=== PATIENT | female | born 1995 | race American Indian/Alaskan Native ===

== ENCOUNTER 2016-06-17 09:16 | Emergency (ER) | payer SELFPAY ==
[2016-06-17 10:37] LABS: Basophils % (Auto) 0.5 % (0.0-1.8); Eosinophils % (Auto) 1.3 % (0.0-4.3); Hematocrit 42.6 % (30.3-42.9); Hemoglobin 13.7 gm/dl (10.1-14.3); Mean Corpuscular HGB Conc 32 % (30-34); Mean Corpuscular Hemoglobin 27 pg (28-32); Mean Corpuscular Volume 84 fl (79-97); Platelet Count 336 K/mm3 (140-440); Red Blood Count 5.11 M/mm3 (3.65-5.03); Red Cell Distribution Width 14.4 % (13.2-15.2); White Blood Count 4.1 K/mm3 (4.5-11.0)
[2016-06-17 10:59] LABS: Anion Gap 18 mmol/L; BUN/Creatinine Ratio 13.33; Blood Urea Nitrogen 8 mg/dL (7-17); Calcium 9.1 mg/dL (8.4-10.2); Carbon Dioxide 23 mmol/L (22-30); Chloride 101.6 mmol/L (98-107); Glucose 80 mg/dL (65-100); Potassium 4.8 mmol/L (3.6-5.0); Sodium 138 mmol/L (137-145)
[2016-06-17 11:32] LABS: Bacteria,Urine 1+ /HPF (Negative); Bilirubin,Urine NEG (Negative); Blood,Urine NEG (Negative); Ketones,Urine NEG (Negative); Leukocyte Esterase,Urine LG (Negative); Mucus,Urine 1+ /HPF; Nitrite,Urine NEG (Negative); Protein,Urine <15 mg/dL mg/dL (Negative); Urobilinogen,Urine < 2.0 mg/dL (<2.0)
[2016-06-17] MEDS ORDERED: NACL ONE (15:32)
[2016-06-17] MEDS ORDERED: NACL 0.9% 1000 ML 1,000 ML IV ONE (15:33)
[2016-06-17] MEDS ORDERED: MOTRIN PO ONE (15:34)
--- NOTE | 2016-06-17 17:40 | Cat Scan Report ---
FINAL REPORT EXAM: CT ABDOMEN PELVIS W CON HISTORY: abd pain TECHNIQUE: Standard enhanced CT of the abdomen and pelvis. Imaging was obtained at 1.25 and 2.5 mm axial increments. Delayed imaging through the kidneys and bladder were obtained. Coronal and sagittal reconstruction was also performed. Contrast: 100 mL Omnipaque 300 given IV. PRIORS: None. FINDINGS: Within the abdomen, the liver, pancreas, gallbladder, adrenal glands, and kidneys are unremarkable. A punctate granulomatous calcification in the spleen is seen. No evidence for retroperitoneal or pelvic lymphadenopathy is seen. The bowel loops have normal caliber. No soft tissue mass, fluid collection, inflammatory change, or free air is seen within the abdomen or pelvis. The appendix is not clearly visualized. No inflammatory process in the right lower quadrant or right pelvis is seen however. Within the pelvis, the bladder is unremarkable. The uterus is normal. There is an involuting 1.5 cm cyst in the left ovary (axial image 132) no evidence for mass or lymphadenopathy is seen in the pelvis. Images through the upper abdomen include the lung bases which are expanded and clear. Bony structures show no focal abnormalities and are intact. IMPRESSION: 1. no acute intra-abdominal process noted. 2. Involuting left ovarian cyst
[2016-06-17] MEDS ORDERED: ROCEPHIN IM ONE (19:03)
[2016-06-17] MEDS ORDERED: XYLOCAINE 1% MPF 5 mL INFILTRATI ONE (19:03)
[2016-06-17 19:21] VITALS: BP 132/76
--- NOTE | 2016-06-17 22:09 | Emergency Department Report ---
Entered by FABIANA ALFARO, acting as scribe for DEXTER RODRIGUES NP. ED Female HPI - General Chief complaint: Abdominal Pain Stated complaint: ALLERGIC REACTION/ABD PAIN Time Seen by Provider: 06/17/16 14:45 Source: patient Mode of arrival: Ambulatory Limitations: No Limitations - History of Present Illness Initial comments: 20 year old female with no significant PMHx presents to the ED c/o lower abdominal pain that began 3 days ago. Rates abdominal pain an 8 out of 10 in severity. Patient states that she began experiencing vaginal burning with discharge 2 days prior to the onset of lower abdominal pain. She used over-the- counter Monistat Tuesday to relieve burning sensation, but her symptoms worsened over the next 4 days. Associated symptoms include vaginal swelling that began last night, urgency/frequency with urination, dysuria, white watery discharge, but she denies nausea, vomiting, and diarrhea. She notes that her symptoms began 3 days after sexual intercourse with new partner. LMP 05/29/2016. NKDA. VARMA Complaint: other (lower abdominal pain) Onset/Timin -: days(s) Location: labia, suprapubic Radiation: non-radiating Severity: moderate Severity scale (0 -10): 8 (lower abdominal pain) Quality: burning Consistency: constant Improves with: none Worsens with: urination, medication ([id number] Monistat) Are you Now?: No Last Menstrual Period: 05/29/16 EDC: 03/05/17 Associated Symptoms: vaginal discharge (white "clumpy", but currently white watery), abdominal pain (lower), dysuria. denies: vaginal bleeding, nausea/ vomiting, fever/chills, rash, shortness of breath, other (diarrhea and vaginal odor, but reports vaginal burning and pain, and vaginal swelling) - Related Data Sexually active: Yes Previous Rx's Medication Instructions Recorded Last Taken Type Ibuprofen [Motrin 800 MG tab] 800 mg PO Q8H PRN #30 tablet 02/27/14 Unknown Rx Cephalexin [Keflex] 500 mg PO QID #40 capsule 04/11/14 Unknown Rx Ibuprofen [Motrin 800 MG tab] 800 mg PO Q8H PRN #20 tablet 04/11/14 Unknown Rx Sulfamethoxazole/Trimethoprim 1 each PO BID #20 tablet 02/05/15 Unknown Rx [Bactrim Ds] Azithromycin [Zithromax TAB] 1 g PO QDAY #1 tablet 06/17/16 Unknown Rx Sulfamethoxazole/Trimethoprim 1 each PO BID #6 tablet 06/17/16 Unknown Rx [Bactrim DS TAB] Allergies Allergy/AdvReac Type Severity Reaction Status Date / Time No Known Allergies Allergy Verified 04/11/14 12:38 ED Review of Systems Comment: All other systems reviewed and negative Constitutional: denies: chills, fever Eyes: denies: eye pain, eye discharge, vision change ENT: denies: ear pain, throat pain Respiratory: denies: orthopnea, shortness of breath, SOB with exertion, SOB at rest Cardiovascular: denies: chest pain, palpitations Endocrine: no symptoms reported Gastrointestinal: abdominal pain (lower). denies: nausea, vomiting, diarrhea, constipation Genitourinary: urgency, dysuria, frequency, discharge (white "clumpy", but currently white watery), other (polyuria, vaginal swelling, and vaginal burning , but denies vaginal odor) Musculoskeletal: denies: back pain, joint swelling, arthralgia Skin: denies: rash, lesions Neurological: denies: headache, weakness, paresthesias ED Past Medical Hx - Past Medical History Previous Medical History?: No - Surgical History Past Surgical History?: No Additional Surgical History: tubal (D&C performed) - Social History Smoking Status: Never Smoker Substance Use Type: None - Medications Home Medications: Home Medications Medication Instructions Recorded Confirmed Last Taken Type Ibuprofen [Motrin 800 MG tab] 800 mg PO Q8H PRN #30 tablet 02/27/14 Unknown Rx Cephalexin [Keflex] 500 mg PO QID #40 capsule 04/11/14 Unknown Rx Ibuprofen [Motrin 800 MG tab] 800 mg PO Q8H PRN #20 tablet 04/11/14 Unknown Rx Sulfamethoxazole/Trimethoprim 1 each PO BID #20 tablet 04/11/14 Unknown Rx [Bactrim Ds] Azithromycin [Zithromax TAB] 1 g PO QDAY #1 tablet 06/17/16 Unknown Rx Sulfamethoxazole/Trimethoprim 1 each PO BID #6 tablet 06/17/16 Unknown Rx [Bactrim DS TAB] ED Physical Exam - General Limitations: No Limitations General appearance: alert, in no apparent distress - Head Head exam: Present: atraumatic, normocephalic - Eye Eye exam: Present: normal appearance, EOMI Pupils: Present: normal accommodation - ENT ENT exam: Present: normal exam, mucous membranes moist - Neck Neck exam: Present: normal inspection, full ROM. Absent: tenderness, lymphadenopathy - Respiratory Respiratory exam: Present: normal lung sounds bilaterally. Absent: respiratory distress - Cardiovascular Cardiovascular Exam: Present: regular rate, normal rhythm - GI/Abdominal GI/Abdominal exam: Present: soft, normal bowel sounds. 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 Absent: swelling, lesions, lacerations, ecchymosis, bleeding Speculum exam: Present: erythema (slight erythema on vaginal almanza), vaginal discharge (white-yellow "cottage cheese" discharge). Absent: vaginal bleeding, foreign body, laceration - Expanded Exam Expanded Female exam: Present: other (female corporate scheduler present for exam). Absent: vaginal laceration, vulvar erythema, vulvar tenderness, foreign body External exam: Present: normal. Absent: , bleeding Speculum exam: Present: vaginal discharge (white-yellow "cottage cheese" discharge). Absent: vaginal bleeding - Extremities Exam Extremities exam: Present: normal inspection, full ROM - Back Exam Back exam: Present: normal inspection, full ROM - Neurological Exam Neurological exam: Present: alert, oriented X3 - Psychiatric Psychiatric exam: Present: normal affect, normal mood - Skin Skin exam: Present: warm, dry, intact ED Course Vital Signs 06/17/16 06/17/16 06/17/16 10:09 16:07 19:21 Temperature 98.0 F Pulse Rate 87 84 Respiratory 16 16 18 Rate Blood Pressure 134/78 Blood Pressure 132/76 [Left] O2 Sat by Pulse 100 100 Oximetry - Reevaluation(s) Reevaluation #1: 06/17/16 18:24 Dr. Kyle aware of patient and to obtain CT scan. Patient states her abdominal pain is gone now. Patient is non-toxic appearance or ill. No signs of distress. ED Medical Decision Making - Lab Data Result diagrams: 06/17/16 10:25 06/17/16 10:25 - Medical Decision Making Ed course: This is a 20-year-old female that presents with vaginal discharge and vaginal irritation. She also complains about lower abdominal/pelvis pain. 1- patient received 1000 mL of normal saline bolus. 2- CT scan of the abdomen/pelvis with contrast. Results read by Dr. Baltazar. Impression; no acute intra-abdominal processes noted. Involuting left ovarian cyst. 3- eyes plain to the patient about the CT scan of the left ovarian cyst. Instructed the patient to follow up with her jewelry polisher in 3-5 days. 4- patient tolerated vaginal speculum exam. No signs of complications or distress noted. 5- I sent gonorrhea Chlamydia to the lab. As well as wet prep. 6-I instructed patient to increase her fluids by mouth. The patient to complete antibiotic course. 7- I instructed the patient to come back to [facility] in 5-7 days for results of gonorrhea Chlamydia. 8- due to patient being concerned of gonorrhea Chlamydia and symptoms, I treated patient for gonorrhea Chlamydia with Rocephin and azithromycin. 9- at this time the patient is nontoxic or ill appearance. Denies any further questions. Agrees to treatment plan and discharge instructions. ED Disposition Clinical Impression: UTI (urinary tract infection), Exposure to STD, Cervicitis Disposition: DISCHARGED TO HOME OR SELFCARE Is pt being admited?: No Does the pt Need Aspirin: No Condition: Stable Instructions: Cervicitis (ED), Abdominal Pain (ED) Additional Instructions: Please follow up with her jewelry polisher in 3-5 days. Please follow up with her primary care doctor in 3-5 days. Report back to emergency room if he seen any signs of worsening or changes. Prescriptions: Azithromycin [Zithromax TAB] 1 g PO QDAY #1 tablet Sulfamethoxazole/Trimethoprim [Bactrim DS TAB] 1 each PO BID #6 tablet Referrals: PRIMARY CARE, [Primary Care Provider] - 3-5 Days [facility] [Provider Group] - 3-5 Days [facility] [Outside] - 3-5 Days [facility] [Outside] - 3-5 Days Forms: STI Treatment and Prevention, Work/School Release Form(ED) This documentation as recorded by the DOMINIC long JASMINE,accurately reflects the service I personally performed and the decisions made by me,DEXTER RODRIGUES, ESTRELLA.
== END 2016-06-17 19:21 | disposition home or self-care (01) ==
LOC: ED 09:16
DX: N39.0 Urinary tract infection, site not specified (principal); N72 Inflammatory disease of cervix uteri; Z20.2 Contact with and (suspected) exposure to infections with a predominantly sexual mode of transmission
CPT/HCPCS: 36415; 74177; 80048; 81001; 81025; 85025; 87210; 87591; 96360; 96372; 99285; J0696; J7030; Q9967

== ENCOUNTER 2016-07-25 21:54 | Emergency (ER) | payer SELFPAY ==
[2016-07-25 23:53] LABS: Hematocrit 48.9 % (30.3-42.9); Hemoglobin 15.7 gm/dl (10.1-14.3); Mean Corpuscular HGB Conc 32 % (30-34); Mean Corpuscular Hemoglobin 27 pg (28-32); Mean Corpuscular Volume 84 fl (79-97); Red Blood Count 5.81 M/mm3 (3.65-5.03); Red Cell Distribution Width 15.4 % (13.2-15.2); White Blood Count 6.9 K/mm3 (4.5-11.0)
[2016-07-26 00:50] LABS: Alanine Aminotransferase 67 units/L (7-56); Albumin 3.8 g/dL (3.9-5); Albumin/Globulin Ratio 0.8 %; Alkaline Phosphatase 95 units/L (35-129); Anion Gap 23 mmol/L; Blood Urea Nitrogen 6 mg/dL (7-17); Calcium 8.6 mg/dL (8.4-10.2); Carbon Dioxide 20 mmol/L (22-30); Chloride 100.8 mmol/L (98-107); Glucose 87 mg/dL (65-100); Lipase 18 units/L (13-60); Potassium 4.1 mmol/L (3.6-5.0); Sodium 140 mmol/L (137-145); Total Protein 8.5 g/dL (6.3-8.2)
[2016-07-26 01:36] LABS: Basophils % (Manual) 0 % (0.0-1.8); Blastocytes % (Manual) 0 %
[2016-07-26 01:37] LABS: Diff Status Complete; EDTA Platelet Clumps Rare; Macrocytosis Few; Platelet Count 228 K/mm3 (140-440); Platelet Estimate Consistent w Auto
[2016-07-26 03:06] LABS: Bilirubin,Urine NEG (Negative); Blood,Urine NEG (Negative); Ketones,Urine NEG (Negative); Leukocyte Esterase,Urine LG (Negative); Mucus,Urine 3+ /HPF; Nitrite,Urine NEG (Negative)
[2016-07-26] MEDS ORDERED: MACROBID PO ONE (08:33)
[2016-07-26] MEDS ORDERED: ZOFRAN ODT PO ONE (08:35)
--- NOTE | 2016-07-26 08:36 | Emergency Department Report ---
HPI - General Chief Complaint: Abdominal Pain Time Seen by Provider: 07/26/16 08:24 - HPI HPI: This is a 20-year-old -I[place] female who presents to the emergency department with a 2 week history of vaginal swelling, vaginal discharge, nausea with vomiting and some mild abdominal discomfort. She has taken Monistat thinking that her symptoms were due to a yeast infection but she is not on any relief. She has a history of STDs in the past with previous trichomoniasis, gonorrhea and chlamydia. She is currently sexually active and does not always use protection. No recent travel or sick contacts at home. She denies any past medical history. She does not have a primary care doctor or [facility]. She denies any fever, diarrhea, dysuria, back pain. ED Past Medical Hx - Past Medical History Previous Medical History?: No - Surgical History Past Surgical History?: No Additional Surgical History: tubal (D&C performed) - Social History Smoking Status: Former Smoker Substance Use Type: None - Medications Home Medications: Home Medications Medication Instructions Recorded Confirmed Last Taken Type Ibuprofen [Motrin 800 MG tab] 800 mg PO Q8H PRN #30 tablet 02/27/14 Unknown Rx Cephalexin [Keflex] 500 mg PO QID #40 capsule 04/11/14 Unknown Rx Ibuprofen [Motrin 800 MG tab] 800 mg PO Q8H PRN #20 tablet 04/11/14 Unknown Rx Sulfamethoxazole/Trimethoprim 1 each PO BID #20 tablet 04/11/14 Unknown Rx [Bactrim Ds] Azithromycin [Zithromax TAB] 1 g PO QDAY #1 tablet 06/17/16 Unknown Rx Sulfamethoxazole/Trimethoprim 1 each PO BID #6 tablet 06/17/16 Unknown Rx [Bactrim DS TAB] Doxycycline [Vibramycin CAP] 100 mg PO Q12HR #14 capsule 07/26/16 Unknown Rx HYDROcodone/APAP 5-325 [Sheldahl 1 each PO Q6HR PRN #10 tablet 07/26/16 Unknown Rx 5/325] ED Review of Systems ROS: Stated complaint: VAG SWELLING/ABD PAIN/VOMITING Other details as noted in HPI Comment: All other systems reviewed and negative Constitutional: denies: chills, fever Eyes: denies: eye pain, eye discharge, vision change ENT: denies: ear pain, throat pain Respiratory: denies: cough, shortness of breath, wheezing Cardiovascular: denies: chest pain, palpitations Gastrointestinal: abdominal pain, nausea, vomiting Genitourinary: discharge. denies: dysuria Musculoskeletal: denies: back pain, joint swelling, arthralgia Skin: denies: rash, lesions Neurological: denies: weakness, numbness Physical Exam - Physical Exam Vital Signs: Vital Signs 07/25/16 07/26/16 23:19 05:45 Temperature 98.1 F 98.5 F Pulse Rate 95 H 95 H Respiratory 18 20 Rate Blood Pressure 120/80 134/84 O2 Sat by Pulse 100 100 Oximetry Physical Exam: GENERAL: The patient is well-developed well-nourished. HEENT: Normocephalic. Atraumatic. Extraocular motions are intact. Patient has moist mucous membranes. Pupils equal reactive to light bilaterally. NECK: Supple. Trachea is midline. CHEST/LUNGS: Clear to auscultation. There is no respiratory distress noted. HEART/CARDIOVASCULAR: Regular. There is no tachycardia. There is no gallop rub or murmur. ABDOMEN: Abdomen is soft, nontender. Patient has normal bowel sounds. There is no abdominal distention. No guarding. SKIN: There is some mild nonpitting swelling of the bilateral labia but no erythema, lesions. NEURO: The patient is awake, alert, and oriented. The patient is cooperative. The patient has no focal neurologic deficits. The patient has normal speech. MUSCULOSKELETAL: There is no tenderness or deformity. There is no limitation range of motion. There is no evidence of acute injury. : No visible vaginal lesions. There is a mild to moderate amount of non- malodorous thin white discharge seen. There is some tenderness to palpation over the bilateral labia. ED Course Vital Signs 07/25/16 07/26/16 23:19 05:45 Temperature 98.1 F 98.5 F Pulse Rate 95 H 95 H Respiratory 18 20 Rate Blood Pressure 120/80 134/84 O2 Sat by Pulse 100 100 Oximetry ED Medical Decision Making - Lab Data Result diagrams: 07/25/16 23:29 07/25/16 23:29 - Radiology Data Radiology results: image reviewed interpreted by me: Abdominal x-ray shows non-obstructive nonspecific bowel gas. - Medical Decision Making 20-year-old female presents emergency Department with complaint of vaginal pain , some discharge and occasionally some abdominal discomfort. Vital signs stable throughout her ED course including being afebrile. Labs are mostly unremarkable. The patient has some mild elevation in transaminase levels but they're not significantly high and not in an area where the patient has any discomfort. An abdominal x-ray was done that does not show any acute process including no signs of obstruction. Patient's labs showed a small urinary tract infection but it was not a clean sample, however the patient was treated with a dose of Macrobid. A pelvic exam was done that shows a mild to moderate amount of non-malodorous thin white discharge. It also shows a inflamed labial region but there is no erythema and no lesions seen. The patient was asked repeatedly but denies any actual pelvic pain and says that the pain is mostly around the labia and vagina. For this reason no pelvic ultrasound was done. There is no visible abscess or Bartholin's gland cyst. The vaginal discharge was tested on wet prep was negative for Trichomonas or BV. The gonorrhea and chlamydia cultures are not yet back. However the patient will be treated with doxycycline as it will cover her for any cellulitis, gonorrhea and chlamydia or intra-abdominal/pelvic etiology. The patient was given referrals for primary care and [facility]. She will return to the ER with any worsening of her symptoms or any acute distress. - Differential Diagnosis Soha, STD, abscess, , UTI Critical Care Time: No Critical care attestation.: If time is entered above; I have spent that time in minutes in the direct care of this critically ill patient, excluding procedure time. ED Disposition Clinical Impression: Vaginal discharge, Vaginal pain, Nausea UTI (urinary tract infection) Qualifiers: Urinary tract infection type: acute cystitis Hematuria presence: without hematuria Qualified Code(s): N30.00 - Acute cystitis without hematuria Disposition: DISCHARGED TO HOME OR SELFCARE Is pt being admited?: No Condition: Stable Instructions: Acute Nausea and Vomiting (ED), Abdominal Pain (ED) Additional Instructions: You were seen today for your vaginal pain, vaginal discharge, nausea and occasional abdominal discomfort. The results of your gonorrhea and/or Chlamydia culture should be back in 2-3 days. I'm starting you on an antibiotics to cover you for a mild urinary tract infection and possible skin infection of the vagina. This antibiotic can sometimes make people sensitive to the sun or UV light and therefore you should wear sunscreen when you are outside. I have given you a referral for both primary care and [facility]. Return to the emergency department with any worsening of your symptoms or any acute distress. You've been prescribed a medication that is sedating. Therefore this medication cannot be mixed with alcohol, or taken prior to driving, working, or being responsible for children. Prescriptions: Doxycycline [Vibramycin CAP] 100 mg PO Q12HR #14 capsule HYDROcodone/APAP 5-325 [Sheldahl 5/325] 1 each PO Q6HR PRN #10 tablet PRN Reason: Pain Referrals: AMELIE SHER MD [Primary Care Provider] - 3-5 Days INO ZAZUETA MD [Staff Physician] - 3-5 Days [facility] [Provider Group] - 3-5 Days [facility] [Provider Group] - 3-5 Days [facility] [Outside] - 3-5 Days Time of Disposition: 11:48
--- NOTE | 2016-07-26 09:27 | XRay Report ---
Abdomen 2 views: History: Abdominal pain. Findings: No free intraperitoneal air. No bowel distention or wall thickening. No radiopaque calculus or abnormal calcification. Impression: No acute cardiopulmonary findings.
[2016-07-26] MEDS ORDERED: PERCOCET 5/325 PO ONE (11:20)
[2016-07-26] MEDS ORDERED: VIBRAMYCIN PO ONE (11:26)
[2016-07-26] MEDS ORDERED: MACROBID ONE (11:30)
[2016-07-26] MEDS ORDERED: ZOFRAN ODT ONE (11:30)
[2016-07-26 12:12] VITALS: BP 118/76
== END 2016-07-26 12:13 | disposition home or self-care (01) ==
LOC: ED 21:54
DX: N89.8 Other specified noninflammatory disorders of vagina (principal); N30.00 Acute cystitis without hematuria; R10.2 Pelvic and perineal pain; R11.2 Nausea with vomiting, unspecified; Z87.891 Personal history of nicotine dependence
CPT/HCPCS: 36415; 74020; 80053; 81001; 81025; 83690; 85007; 85025; 87210; 87591; Q0162

== ENCOUNTER 2016-08-14 23:49 | Emergency (ER) | payer SELFPAY ==
[2016-08-15 00:48] VITALS: BP 121/76
== END 2016-08-15 00:01 | disposition left against medical advice (07) ==
LOC: ED 23:49
DX: O46.90 Antepartum hemorrhage, unspecified, unspecified trimester (principal); Z53.21 Procedure and treatment not carried out due to patient leaving prior to being seen by health care provider

== ENCOUNTER 2016-09-28 12:49 | Emergency (ER) | payer MEDICAID ==
[2016-09-28 13:02] VITALS: BP 130/81
--- NOTE | 2016-09-28 13:22 | Emergency Department Report ---
Chief Complaint: Urogenital-Female Stated Complaint: ALLERGIC REACTION IN VAGINAL AREA Time Seen by Provider: 09/28/16 13:18 - HPI History of Present Illness: PT states she thinks she is having an allergic reaction. PT States she used Refresh vaginal suppositories on and Tuesday. PT States she had a discharge and odor prior to home treatment. PT states now she is having discharge, order, itching and burning and pain with wiping. - ROS Review of Systems: - f/c - n/v - Exam Vital Signs: Vital Signs 09/28/16 12:58 Temperature 98.2 F Pulse Rate 94 H Blood Pressure 130/81 O2 Sat by Pulse 100 Oximetry Physical Exam: PT looks well, non toxic. Steady gait obese abd soft and non tender. MSE screening note: Focused history and physical exam performed. Due to findings the following was ordered: labs ED Disposition for MSE Condition: Stable
[2016-09-28 15:00] LABS: Bacteria,Urine 1+ /HPF (Negative); Bilirubin,Urine NEG (Negative); Blood,Urine SM (Negative); Ketones,Urine NEG (Negative); Leukocyte Esterase,Urine LG (Negative); Nitrite,Urine NEG (Negative); Protein,Urine <15 mg/dL mg/dL (Negative); Urobilinogen,Urine < 2.0 mg/dL (<2.0)
--- NOTE | 2016-09-28 16:20 | Emergency Department Report ---
ED Female HPI - General Chief complaint: Urogenital-Female Stated complaint: ALLERGIC REACTION IN VAGINAL AREA Time Seen by Provider: 09/28/16 13:18 Source: patient Mode of arrival: Ambulatory Limitations: No Limitations - History of Present Illness Initial comments: And he reported that she has itching and burning in vaginal area. She says she is white clumpy vaginal discharge. She says she took vaginal suppository for all other then started having itching and burning after. Patient is sexually active and practices unsafe sex with one partner as a nausea or vomiting. Reports that she would like to be treated for STD. Last menstrual period was . He denies any vaginal bleeding. Denies any fever or chills. Neither the pain at present. MD Complaint: vaginal discharge, dysuria, possible STD Onset/Timin -: days(s) Severity scale (0 -10): 0 Are you Now?: No Associated Symptoms: vaginal discharge, dysuria. denies: vaginal bleeding, abdominal pain, nausea/vomiting, fever/chills, headaches, loss of appetite, hematuria, rash, seizure, shortness of breath, syncope, weakness - Related Data Sexually active: Yes Previous Rx's Medication Instructions Recorded Last Taken Type Ibuprofen [Motrin 800 MG tab] 800 mg PO Q8H PRN #30 tablet 02/27/14 Unknown Rx Cephalexin [Keflex] 500 mg PO QID #40 capsule 04/11/14 Unknown Rx Ibuprofen [Motrin 800 MG tab] 800 mg PO Q8H PRN #20 tablet 04/11/14 Unknown Rx Sulfamethoxazole/Trimethoprim 1 each PO BID #20 tablet 04/11/14 Unknown Rx [Bactrim Ds] Azithromycin [Zithromax TAB] 1 g PO QDAY #1 tablet 06/17/16 Unknown Rx Sulfamethoxazole/Trimethoprim 1 each PO BID #6 tablet 06/17/16 Unknown Rx [Bactrim DS TAB] Doxycycline [Vibramycin CAP] 100 mg PO Q12HR #14 capsule 07/26/16 Unknown Rx HYDROcodone/APAP 5-325 [[place] 1 each PO Q6HR PRN #10 tablet 07/26/16 Unknown Rx 5/325] Fluconazole [Diflucan TAB] 200 mg PO QDAY #2 tablet 09/28/16 Unknown Rx Nitrofurantoin [place]/M-Cryst 100 mg PO Q12HR #14 capsule 09/28/16 Unknown Rx [Macrobid CAP] Phenazopyridine [Pyridium] 100 mg PO TID PRN #9 tab 09/28/16 Unknown Rx Allergies Allergy/AdvReac Type Severity Reaction Status Date / Time No Known Allergies Allergy Verified 04/11/14 12:38 ED Review of Systems ROS: Stated complaint: ALLERGIC REACTION IN VAGINAL AREA Other details as noted in HPI Comment: All other systems reviewed and negative Constitutional: denies: chills, fever ENT: denies: throat pain Respiratory: no symptoms reported Cardiovascular: denies: chest pain, palpitations, edema, syncope ED Past Medical Hx - Past Medical History Previous Medical History?: Yes Additional medical history: Ectopic - Surgical History Past Surgical History?: No Additional Surgical History: tubal (D&C performed) - Family History Family history: no significant - Social History Smoking Status: Never Smoker Substance Use Type: None Other Social History: Single - Medications Home Medications: Home Medications Medication Instructions Recorded Confirmed Last Taken Type Ibuprofen [Motrin 800 MG tab] 800 mg PO Q8H PRN #30 tablet 02/27/14 Unknown Rx Cephalexin [Keflex] 500 mg PO QID #40 capsule 04/11/14 Unknown Rx Ibuprofen [Motrin 800 MG tab] 800 mg PO Q8H PRN #20 tablet 04/11/14 Unknown Rx Sulfamethoxazole/Trimethoprim 1 each PO BID #20 tablet 04/11/14 Unknown Rx [Bactrim Ds] Azithromycin [Zithromax TAB] 1 g PO QDAY #1 tablet 06/17/16 Unknown Rx Sulfamethoxazole/Trimethoprim 1 each PO BID #6 tablet 06/17/16 Unknown Rx [Bactrim DS TAB] Doxycycline [Vibramycin CAP] 100 mg PO Q12HR #14 capsule 07/26/16 Unknown Rx HYDROcodone/APAP 5-325 [Pet[place] 1 each PO Q6HR PRN #10 tablet 07/26/16 Unknown Rx 5/325] Fluconazole [Diflucan TAB] 200 mg PO QDAY #2 tablet 09/28/16 Unknown Rx Nitrofurantoin [place]/M-Cryst 100 mg PO Q12HR #14 capsule 09/28/16 Unknown Rx [Macrobid CAP] Phenazopyridine [Pyridium] 100 mg PO TID PRN #9 tab 09/28/16 Unknown Rx ED Physical Exam - General Limitations: No Limitations General appearance: alert, in no apparent distress - Head Head exam: Present: atraumatic, normocephalic, normal inspection - Eye Eye exam: Present: normal appearance, PERRL, EOMI Pupils: Present: normal accommodation - ENT ENT exam: Present: normal exam, normal orophraynx, mucous membranes moist - Neck Neck exam: Present: normal inspection, full ROM. Absent: tenderness, meningismus, lymphadenopathy - Respiratory Respiratory exam: Present: normal lung sounds bilaterally. Absent: respiratory distress, chest wall tenderness - Cardiovascular Cardiovascular Exam: Present: regular rate, normal rhythm, normal heart sounds - GI/Abdominal GI/Abdominal exam: Present: soft, normal bowel sounds. Absent: distended, tenderness, guarding, rebound, rigid - External exam: Present: normal external exam. Absent: erythema, swelling, lesions, lacerations, ecchymosis, bleeding Speculum exam: Present: vaginal discharge (white and clumpy), cervical discharge. Absent: erythema, vaginal bleeding, tissue, laceration Bi-manual exam: Present: normal bi-manual exam. Absent: cervical motion tendernes, adnexal tenderness, adnexal mass, uterine enlargement, uterine tenderness - Extremities Exam Extremities exam: Present: normal inspection, full ROM, normal capillary refill. Absent: tenderness, pedal edema, joint swelling, calf tenderness - Back Exam Back exam: Present: normal inspection, full ROM. Absent: tenderness, CVA tenderness (R), CVA tenderness (L), muscle spasm, paraspinal tenderness, vertebral tenderness, rash noted - Neurological Exam Neurological exam: Present: alert, oriented X3, normal gait - Psychiatric Psychiatric exam: Present: normal affect, normal mood - Skin Skin exam: Present: warm, dry, intact, normal color. Absent: rash ED Course Vital Signs 09/28/16 09/28/16 12:58 17:44 Temperature 98.2 F Pulse Rate 94 H Respiratory 18 Rate Blood Pressure 130/81 O2 Sat by Pulse 100 Oximetry - Reevaluation(s) Reevaluation #1: 09/28/16 17:47 Patient chose to be treated for STD in emergency room. Her wet prep was negative for Trichomonas, yeast or bacterial vaginosis. Urinalysis positive for bladder infection. Patient given Rocephin 1 g IM to cover gonorrhea and azithromycin 1 g by mouth to cover chlamydia. 3 and chlamydia test is pending. ED Medical Decision Making - Lab Data Lab Results 09/28/16 Range/Units 13:14 Urine Color Yellow (Yellow) Urine Turbidity Cloudy (Clear) Urine pH 6.0 (5.0-7.0) Ur Specific [place] 1.011 (1.003-1.030) Urine Protein <15 mg/dl (Negative) mg/dL Urine Glucose (UA) Neg (Negative) mg/dL Urine Ketones Neg (Negative) mg/dL Urine Blood Sm (Negative) Urine Nitrite Neg (Negative) Urine Bilirubin Neg (Negative) Urine Urobilinogen < 2.0 (<2.0) mg/dL Ur Leukocyte Esterase Lg (Negative) Urine WBC (Auto) 15.0 H (0.0-6.0) /HPF Urine RBC (Auto) 8.0 (0.0-6.0) /HPF U Epithel Cells (Auto) 18.0 H (0-13.0) /HPF Urine Bacteria (Auto) 1+ (Negative) /HPF Urine HCG, Qual Negative (Negative) Gonorrhea and chlamydia tests pending Urine culture pending Wet Prep without trichomonas, yeast or bacterial vaginosis - Medical Decision Making MDM: Assessment/plan ED course: Seen here complaining of urinary burning and vaginal discharge and itching . She described the discharge is white and clumpy. This has been going on 5 days and she is use [id number] vaginal suppository without any relief. Patient is concerned about STDs and wants to be treated. Pelvic / bimanual exam with no cervical motion tenderness, vaginal and cervix is white clumpy discharge. External vaginal erythema or lesions. No bleeding noted. Adnexal without any tenderness. I discussed with patient that her urine came back positive for bacterial infection and that her test was negative. Discussed with her that gonorrhea and chlamydia will take 5 days to be resulted but she chose to be treated in emergency room. I also discussed with her that I will treat her for yeast infection based on my physical findings of white, and cottage cheeselike discharge from her vagina. I also discussed the patient that she did not have any bacterial vaginosis or Trichomonas on her test result. Treatment plan and diagnoses explained to patient and she voiced understanding and Labs/diagnostics: Urinalysis positive for bacterial infection and urine cultures pending, and hCG negative, wet prep negative for Trichomonas, bacterial vaginosis or yeast. Gonorrhea and chlamydia tests are pending. Diagnosis: Acute cystitis with hematuria, vaginal discharge, concerns for STD and female without diagnosis, dysuria, yeast infection Medication: Patient given Rocephin 1 g IM to cover gonorrhea and urinary tract infection and Zithromax 1 g by mouth to cover chlamydia. Patient discharged home with prescription for Macrobid , Diflucan And Pyridium. Follow up primary care physician in 3-5 days. Practice safe sex Please refrain from having sex for the next 2 weeks. Take antibiotic for urinary tract infection. Increase her fluid intake. Make sure your partner know that you were treated for STD in emergency room and they will need to go to health department to get checked. Critical care attestation.: If time is entered above; I have spent that time in minutes in the direct care of this critically ill patient, excluding procedure time. ED Disposition Clinical Impression: Acute cystitis with hematuria, Vaginal discharge, Concern about STD in female without diagnosis, Yeast infection Disposition: TO HOME OR SELFCARE Is pt being admited?: No Does the pt Need Aspirin: No Condition: Stable Instructions: Dysuria (ED), Urinary Tract Infection in Women (ED), Sexually Transmitted Diseases (ED), Safe Sex (ED) Additional Instructions: Follow up primary care physician in 3-5 days. Practice safe sex Please refrain from having sex for the next 2 weeks. Take antibiotic for urinary tract infection. Increase her fluid intake. Make sure your partner know that you were treated for STD in emergency room and they will need to go to health department to get checked. Prescriptions: Fluconazole [Diflucan TAB] 200 mg PO QDAY #2 tablet Nitrofurantoin [place]/M-Cryst [Macrobid CAP] 100 mg PO Q12HR #14 capsule Phenazopyridine [Pyridium] 100 mg PO TID PRN #9 tab PRN Reason: URINE BURNING Referrals: PRIMARY CARE,MD [Primary Care Provider] - 3-5 Days Forms: Work/School Release Form(ED)
[2016-09-28] MEDS ORDERED: ROCEPHIN IM STA (17:20)
[2016-09-28] MEDS ORDERED: ZITHROMAX PO ONE (17:20)
[2016-09-28] MEDS ORDERED: XYLOCAINE 1% MPF 5 mL INFILTRATI ONE (17:20)
== END 2016-09-28 18:14 | disposition home or self-care (01) ==
LOC: ED 12:49
DX: N30.01 Acute cystitis with hematuria (principal); N89.8 Other specified noninflammatory disorders of vagina; B37.9 Candidiasis, unspecified
CPT/HCPCS: 81001; 81025; 87210; 87591; 96372; 99284; J0696